=== PATIENT | female | born 1975 | race Two or more races ===

== ENCOUNTER 2018-08-19 22:34 | Emergency (ER) | payer SELFPAY ==
[~2018-08-19] VITALS: Ht 157.5 cm; Wt 87.4 kg
[2018-08-19] MEDS ORDERED: LORazepam 1MG TABLET ONE (23:18)
[2018-08-19 23:22] LABS: BASOPHILS # (AUTO) 0.12 x10^3/uL (0-0.1); BASOPHILS % (AUTO) 1 % (0-1); EOSINOPHILS % (AUTO) 0 % (1-7); LYMPHOCYTES % (AUTO) 11 % (22-44); MD NO; MEAN CORPUSCULAR HEMOGLOBIN 33.4 pg (27.0-34.8); MEAN CORPUSCULAR HGB CONC 33.4 g/dL (32.4-35.8); MEAN PLATELET VOLUME 8.5 fL (7.4-10.4); MONOCYTES # (AUTO) 0.94 x10^3/uL (0.2-0.8); MONOCYTES % (AUTO) 7 % (2-9); NEUTROPHILS # (AUTO) 11.12 x10^3/uL (1.8-6.8); NEUTROPHILS % (AUTO) 81 % (42-75); PLATELET COUNT 433 x10^3/uL (130-400); RED BLOOD COUNT 3.88 x10^6/uL (3.82-5.3); RED CELL DISTRIBUTION WIDTH 14.6 % (9.6-15.2)
[2018-08-19] MEDS ORDERED: LORazepam 1MG TABLET PO ONE (23:30)
[2018-08-19 23:37] LABS: ANION GAP 11 mmol/L (5-15); CHLORIDE 101 mmol/L (98-107); CREATININE 0.66 mg/dL (0.55-1.02)
[2018-08-19 23:41] LABS: TROPONIN I < 0.015 ng/mL (0.000-0.045)
[2018-08-20] MEDS ORDERED: SODIUM CHLORIDE 0.9% 1,000ML IVBOLUS ONE
[2018-08-20] MEDS ORDERED: OMNIPAQUE 350 MG/ML, 100ML BOTTLE ONE (00:25)
[2018-08-20 01:47] VITALS: BP 144/92
[2018-08-20] MEDS ORDERED: MAALOX/HYOSCYAMINE/LIDOCAINE 45 ML BTL ONE (02:03)
== END 2018-08-20 02:09 ==
LOC: ED 23:45
DX: R06.00 Dyspnea, unspecified (principal); E86.0 Dehydration; R20.2 Paresthesia of skin
CPT/HCPCS: 36415; 71045; 71275; 80048; 82040; 84484; 85025; 85379; 93005; 96360; 96361; 99285; J7030; Q9967

== ENCOUNTER 2020-10-16 12:42 | Emergency (ER) | payer OTHER ==
[~2020-10-16] VITALS: Ht 157.5 cm; Wt 89.8 kg
[2020-10-16 12:45] VITALS: BP 177/95
--- NOTE | 2020-10-16 13:12 | NUR ---
THIS IS A 45 YO F W/ C/O BILAT HAND STIFFNESS AND PAIN X5 DAYS. PT REPORTS WHEN BENDING FINERGS THEY INTERMITTENTLY GET STUCK IN THAT POSITION AND SHE IS UNABLE TO MOVE THEM. BILAT HANDS WARM TO TOUCH, CMS INTACT. PT RESTING ON [place] W/ CALL LIGHT IN REACH AND FAMILY AT BEDSIDE. RESP EVEN AND UNLABORED, GAYLE. AWAITING ED EVAL.
--- NOTE | 2020-10-16 13:28 | NUR ---
AT BEDSIDE FOR EVAL.
[2020-10-16] MEDS ORDERED: KETOROLAC 30 MG/1 ML ONE (13:37)
--- NOTE | 2020-10-16 13:41 | NUR ---
LAB IN ROOM.
[2020-10-16 13:54] LABS: BASOPHILS % (AUTO) 1 % (0-1); EOSINOPHILS % (AUTO) 2 % (1-7); LYMPHOCYTES % (AUTO) 35 % (22-44); MEAN CORPUSCULAR HEMOGLOBIN 32.9 pg (27.0-34.8); MEAN CORPUSCULAR HGB CONC 33.4 g/dL (32.4-35.8); MEAN PLATELET VOLUME 10.1 fL (7.4-10.4); MONOCYTES % (AUTO) 7 % (2-9); NEUTROPHILS % (AUTO) 55 % (42-75); PLATELET COUNT 377 x10^3/uL (130-400); RED BLOOD COUNT 4.22 x10^6/uL (3.82-5.3); RED CELL DISTRIBUTION WIDTH 13.4 % (9.6-15.2)
[2020-10-16 13:57] LABS: MD MORPH REVIEW ONLY
[2020-10-16] MEDS ORDERED: KETOROLAC 30 MG/1 ML IM ONE (14:00)
[2020-10-16 14:34] LABS: <PLATELET ESTIMATE> ADEQUATE; <RBC MORPHOLOGY> NORMAL; LARGE PLATELETS 1+
--- NOTE | 2020-10-16 15:26 | NUR ---
Patient given discharge instructions and they have confirmed that they understand the instructions. Patient ambulatory with steady gait.
--- NOTE | 2020-10-17 08:12 | NUR ---
[employer]: PT REQUESTING WORK NOTE FOR VISIT 10/16/20, STATES THEY MISPLACED ONE PROVIDED OR DID NOT EVER GET ONE. WORK NOTE PROVIDED PER DR. AVINA AFTER REVIEWING PT'S CHART, PRIMARY PROVIDER DR. SOLOMON WHO CARED FOR PT WAS NOT ON SHIFT CURRENTLY.
== END 2020-10-16 15:27 | disposition home or self-care (01) ==
LOC: ED 13:10
DX: G56.03 Carpal tunnel syndrome, bilateral upper limbs (principal)
CPT/HCPCS: 29125; 36415; 73110; 85025; 96372; 99284; J1885

== ENCOUNTER 2021-03-20 21:56 | Emergency (ER) | payer SELFPAY ==
[~2021-03-20] VITALS: Ht 157.5 cm; Wt 94.8 kg
[2021-03-20 23:08] LABS: BASOPHILS % (AUTO) 1 % (0-1); EOSINOPHILS % (AUTO) 1 % (1-7); LYMPHOCYTES % (AUTO) 29 % (22-44); MD NO; MEAN CORPUSCULAR HEMOGLOBIN 33.3 pg (27.0-34.8); MEAN CORPUSCULAR HGB CONC 34.2 g/dL (32.4-35.8); MEAN PLATELET VOLUME 8.9 fL (7.4-10.4); MONOCYTES % (AUTO) 9 % (2-9); NEUTROPHILS % (AUTO) 61 % (42-75); PLATELET COUNT 426 x10^3/uL (130-400); RED BLOOD COUNT 3.99 x10^6/uL (3.82-5.3); RED CELL DISTRIBUTION WIDTH 13.4 % (9.6-15.2)
[2021-03-20 23:15] LABS: ALANINE AMINOTRANSFERASE 42 U/L (12-78); ALBUMIN 3.2 g/dL (3.4-5.0); ANION GAP 4 mmol/L (5-15); CALCIUM 8.7 mg/dL (8.5-10.1); CHLORIDE 105 mmol/L (98-107); CREATININE 0.56 mg/dL (0.55-1.02)
[2021-03-20 23:18] LABS: ALKALINE PHOSPHATASE 153 U/L (45-117); BILIRUBIN,TOTAL 0.3 mg/dL (0.2-1.0); TOTAL PROTEIN 8.9 g/dL (6.4-8.2)
--- NOTE | 2021-03-20 23:54 | NUR ---
pt here for right lower ab pain that radiates to right flank, that started about 5-7 days ago. pt states pain is intermittent and about 20 min after eating. pt ambulated steady to restroom for urine sample
[2021-03-21 00:20] LABS: MICROSCOPIC INDICATED
[2021-03-21] MEDS ORDERED: DICYCLOMINE 10 MG/ML, 2ML ONE (00:28)
[2021-03-21] MEDS ORDERED: MAALOX/HYOSCYAMINE/LIDOCAINE 45 ML BTL ONE (00:28)
[2021-03-21] MEDS ORDERED: MAALOX/HYOSCYAMINE/LIDOCAINE 45 ML BTL PO ONE (00:30)
[2021-03-21] MEDS ORDERED: DICYCLOMINE 10 MG/ML, 2ML IM ONE (00:30)
[2021-03-21] MEDS ORDERED: CEFTRIAXONE 1,000 MG ONE (00:38)
[2021-03-21] MEDS ORDERED: LIDOCAINE-MPF 1%, 5ML ONE (00:38)
[2021-03-21] MEDS ORDERED: CEFTRIAXONE 1,000 MG IM ONE (01:00)
[2021-03-21 01:07] VITALS: BP 140/80
== END 2021-03-21 01:28 | disposition home or self-care (01) ==
LOC: ED 22:00
DX: R10.84 Generalized abdominal pain (principal); R10.11 Right upper quadrant pain
CPT/HCPCS: 36415; 76700; 80053; 81001; 83690; 85025; 87077; 87086; 87186; 96372; 99284; J0500; J0696